=== PATIENT | female | born 1990 | race Caucasian/White ===

== ENCOUNTER 2023-03-29 17:01 | Emergency (ER) | payer OTHER ==
[~2023-03-29] VITALS: Ht 167.6 cm; Wt 57.0 kg
[2023-03-29 17:24] VITALS: BP 98/59; PULSE 77; RESP 18; TEMP 98.2; O2SAT 100
[2023-03-29] MEDS ORDERED: PREDNISONE 20MG TABLET PO ONE (17:45)
[2023-03-29] MEDS ORDERED: DIPHENHYDRAMINE 50MG CAPSULE PO ONE (17:45)
[2023-03-29] MEDS ORDERED: FAMOTIDINE 20MG TABLET PO ONE (17:45)
[2023-03-29] MEDS: DIPHENHYDRAMINE 25MG CAPSULE PO NR ×2 (18:30→20:13)
[2023-03-29 18:42] LABS: CLARITY URINE CLOUDY (CLEAR); COLOR URINE DARK YELLOW (YELLOW); GLUCOSE URINE NEGATIVE (NEGATIVE); KETONES URINE TRACE (NEGATIVE); LEUKOCYTE ESTERASE URINE TRACE (NEGATIVE); NITRITE URINE NEGATIVE (NEGATIVE); OCCULT BLOOD URINE NEGATIVE (NEGATIVE); PROTEIN URINE 1+ (NEGATIVE); SPECIFIC GRAVITY URINE 1.023 (1.005-1.030); UROBILINOGEN URINE 0.2 E.U./dL (0.2-1.0)
[2023-03-29 18:44] LABS: RBC URINE 0-2 /hpf (0-2)
[2023-03-29 19:08] LABS: BACTERIA URINE 2+; SQUAMOUS EPITHELIAL CELL URINE 2+ /lpf (RARE/1+); WBC URINE 0-2 /hpf (0-2)
[2023-03-29 19:09] LABS: MUCUS URINE 2+ /lpf (< = 2+)
[2023-03-29 19:11] LABS: YEAST URINE RARE
[2023-03-29 19:37] LABS: CHLORIDE 109 mEq/L (98-107); INDEX HEMOLYSI 1 (1-3); INDEX ICTERIC 1 (1-4); INDEX LIPEMIC 1 (1-3); SODIUM 137 mEq/L (136-145)
[2023-03-29 19:45] LABS: ALANINE AMINOTRANSFERASE 49 IU/L (13-61); ALBUMIN 3.7 g/dL (3.4-5.0); ASPARTATE AMINOTRANSFERASE 25 IU/L (15-37); BILIRUBIN TOTAL 0.2 mg/dL (0.1-1.0); CALCIUM 8.4 mg/dL (8.5-10.1); CARBON DIOXIDE 22 mEq/L (21-32); CREATININE 0.5 mg/dL (0.6-1.3); GLUCOSE 99 mg/dL (70-105); UREA NITROGEN BLOOD 11 mg/dL (7-21)
== END 2023-03-29 20:29 | disposition home or self-care (01) ==
LOC: ER 17:01
DX: T78.40XA Allergy, unspecified, initial encounter (principal); B34.9 Viral infection, unspecified; X58.XXXA Exposure to other specified factors, initial encounter
CPT/HCPCS: 99284; 80053; 81003; 83690; 36415; Q0163; J7512

== ENCOUNTER 2023-10-16 15:52 | Emergency (ER) | payer OTHER ==
[~2023-10-16] VITALS: Ht 160 cm; Wt 54.5 kg
[2023-10-16 15:56] VITALS: O2SAT 99
[2023-10-16] MEDS ORDERED: ERYT60SO14 TP (18:19)
[2023-10-16 19:12] VITALS: BP 121/64; PULSE 68; RESP 18; TEMP 98.5
== END 2023-10-17 00:20 | disposition home or self-care (01) ==
LOC: ER 15:52
DX: H57.89 Other specified disorders of eye and adnexa (principal)
CPT/HCPCS: 99283

== ENCOUNTER 2024-07-21 17:26 | Emergency (ER) | payer OTHER ==
[~2024-07-21] VITALS: Ht 167.6 cm; Wt 55.0 kg
[~2024-07-21 17:26] MED LIST: ERYT60SO14 TP
[2024-07-21 17:35] VITALS: BP 100/52; PULSE 75; RESP 16; TEMP 98.6; O2SAT 95
[2024-07-21] MEDS ORDERED: BO1 TP (18:33)
== END 2024-07-21 19:53 | disposition home or self-care (01) ==
LOC: ER 17:26
DX: L29.0 Pruritus ani (principal)
CPT/HCPCS: 99282

== ENCOUNTER 2024-09-17 16:01 | Emergency (ER) | payer OTHER ==
[~2024-09-17] VITALS: Ht 165.1 cm; Wt 70.0 kg
[~2024-09-17 16:01] MED LIST changes: +BO1 TP
[2024-09-17 16:06] VITALS: O2SAT 98
[2024-09-17 16:33] VITALS: TEMP 36.7
[2024-09-17] MEDS: SODIUM CHLORIDE 0.9% 1,000 ML IV ONE ×2 (17:00→17:15)
[2024-09-17 18:01] LABS: HEMATOCRIT. 38.3 % (36.0-48.0); HEMOGLOBIN. 12.7 g/dL (12.0-16.0); MEAN CORPUSCULAR HEMOGLOBIN 29.9 pg (28.0-32.0); MEAN CORPUSCULAR HGB CONC 33.3 g/dL (31.0-37.0); MEAN CORPUSCULAR VOLUME 89.7 fL (81.0-99.0); PLATELET 185 x1000/uL (130-400); RED BLOOD CELL COUNT 4.27 mill/uL (4.2-5.4); RED CELL DISTRIBUTION WIDTH 13.8 % (11.6-14.6)
[2024-09-17 18:11] LABS: CHLORIDE 106 mEq/L (98-107); POTASSIUM 3.5 mEq/L (3.5-5.1); SODIUM 141 mEq/L (136-145)
[2024-09-17 18:12] LABS: CALCIUM 9.2 mg/dL (8.7-10.4); CARBON DIOXIDE 24 mEq/L (21-32); DIFFERENTIAL COMMENT 1
[2024-09-17 18:14] LABS: HCG SCREEN NEGATIVE
[2024-09-17 18:17] LABS: CREATININE 0.7 mg/dL (0.6-1.0); GLUCOSE 151 mg/dL (70-105); UREA NITROGEN BLOOD 6 mg/dL (9-23)
[2024-09-17 18:25] LABS: TROPONIN I HIGH SENSITIVITY < 4 ng/L (3.0-34)
[2024-09-17 18:31] LABS: D-DIMER 0.29 mg/L FEU (<0.50); PARTIAL THROMBOPLASTIN TIME 23.6 sec (23.4-31.0); PROTHROMBIN TIME 10.8 sec (9.6-11.0)
[2024-09-17 19:34] VITALS: BP 110/59; PULSE 90; RESP 16; O2SAT 94
[2024-09-17 22:18] LABS: PLATELET ESTIMATE NORMAL
== END 2024-09-17 19:44 | disposition home or self-care (01) ==
LOC: ER 16:04
DX: I95.9 Hypotension, unspecified (principal)
CPT/HCPCS: 99285; 96360; 71045; 80048; 82962; 84703; 85025; 85379; 85610; 85730; 84484; 36415; 93005; J7030